=== PATIENT | female | born 1950 | race Caucasian/White ===

== ENCOUNTER 2017-03-30 14:44 | Outpatient (CLI) | payer OTHER ==
[2015-08-22 08:55] VITALS: BP 160/68
[2017-03-30 15:37] LABS: BASOPHILS % 0.6 (0.0-1.5); EOSINOPHILS % 1.1 % (0.0-6.8); MEAN CORPUSCULAR HEMOGLOBIN 31.4 pg (28.0-34.0); MONOCYTES % 4.1 % (0.0-11.0)
[2017-03-30 15:42] LABS: eGFR (African) > 60; eGFR (Non-African) > 60
== END 2017-03-30 14:45 ==
LOC: LAB 14:44
PROVIDERS: ATTEND Physician Assistant
DX: Z00.00 Encounter for general adult medical examination without abnormal findings (principal)
CPT/HCPCS: 36415; 80053; 80061; 84443; 85025

== ENCOUNTER 2017-11-21 09:46 | Day surgery (SDC) | payer MEDICARE, OTHER ==
[2015-08-22 08:55] VITALS: BP 160/68
--- NOTE | 2017-11-21 16:31 | GI Report ---
REFERRING PHYSICIAN: Dr. Marko Bass [employer]MER MACHINE OPERATOR: Antonio Parish MD PROCEDURE MEDICATION: Propofol as per anesthesia. INDICATIONS: Patient had a colonoscopy 10 years ago. She is having no symptoms. She is referred for a screening. PROCEDURE PERFORMED: Screening colonoscopy and polypectomy. PROCEDURE: An Olympus video colonoscope was advanced to the rectum and slowly advanced to the cecum. In the base of the cecum, the patient had a 2 mm to 3 mm flat polyp that was cold biopsy removed. The ascending colon had a little redundancy. No obvious intraluminal lesions noted. The transverse colon, likewise, with redundancy, no obvious intraluminal lesions noted. In the descending colon at about 70 cm, the patient had a 3 mm sessile polyp removed with a cold snare. The remaining part of the descending colon and sigmoid, no additional intraluminal lesions noted. Retroflexion of the rectum shows a hemorrhoid. Patient tolerated the procedure well. FINDINGS: Two polyps removed, 1 in the cecum and 1 in the descending colon. RECOMMENDATIONS: 1. A high-fiber diet. 2. Pending the pathology of the polyps, recommend re-looking at her colon within 5 years. cc: Dr. Marko Bass [facility]ITAL[facility]a
== END 2017-11-21 09:47 ==
LOC: OPSURG 09:46
PROVIDERS: ATTEND Internal Medicine Gastroenterology
DX: Z12.11 Encounter for screening for malignant neoplasm of colon (principal); D12.0 Benign neoplasm of cecum; D12.4 Benign neoplasm of descending colon; I10 Essential (primary) hypertension; R01.1 Cardiac murmur, unspecified
CPT/HCPCS: 45385; J2001; J2704; J7120; S1016